=== PATIENT | female | born 1930 | race Caucasian/White ===

== ENCOUNTER 2017-11-25 14:11 | Outpatient (CLI) | END 2017-11-25 14:12 | disposition home or self-care (01) | LOC: AMBL 14:11 | PROVIDERS: ATTEND Emergency Medicine | DX: R31.9 Hematuria, unspecified (principal); G20 Parkinson's disease; Z74.01 Bed confinement status ==

== ENCOUNTER 2018-04-08 17:25 | Outpatient (CLI) | END 2018-04-08 17:43 | disposition short-term general hospital (02) | LOC: AMBL 17:25 | PROVIDERS: ATTEND Internal Medicine | DX: R07.9 Chest pain, unspecified (principal); R00.0 Tachycardia, unspecified; R40.2421 Glasgow coma scale score 9-12, in the field [EMT or ambulance] ==